=== PATIENT | female | born 1960 | race African-American/Black ===

== ENCOUNTER 2018-08-25 04:54 | Inpatient (IN) | payer MEDICAID ==
[~2018-08-25] VITALS: Ht 167.6 cm; Wt 102.0 kg
[2018-08-25] MEDS ORDERED: cloNIDine HCL 0.1 MG TAB PO ONE (05:15)
[2018-08-25 06:11] LABS: Basophils # (auto) 0.2 uL; Basophils % (auto) 1.1 % (0.0-2.0); Eosinophils # (auto) 0.2 uL; Eosinophils % (auto) 1.6 % (0.0-7.0); Hematocrit 40.7 % (36.0-46.0); Hemoglobin 13.8 g/dL (12.2-16.2); Lymphocytes # (auto) 1.5 uL; Lymphocytes % (auto) 10.7 % (10.0-50.0); Mean Corpuscular Hemoglobin 27.9 pg (28.0-32.0); Mean Corpuscular Volume 82.1 fL (80.0-100.0); Monocytes # (auto) 0.5 uL; Monocytes % (auto) 3.3 % (0.0-12.0); Neutrophils # (auto) 11.7 uL; Neutrophils % (auto) 83.3 % (37.0-80.0); Platelet Count (auto) 401 10^3/uL (140-450); Red Blood Cells 4.96 10^6/uL (4.0-5.20); Red Cell Distribution Width 14.2 % (11.8-14.3)
[2018-08-25 06:28] LABS: Alanine Aminotransferase 24 U/L (13-56); Albumin 3.8 g/dL (3.4-5.0); Anion Gap 8 (5-15); Aspartate Aminotransferase 17 U/L (15-37); BUN/Creatinine Ratio 13.7; Blood Urea Nitrogen 13 mg/dL (7-18); Calcium 8.7 mg/dL (8.5-10.1); Carbon Dioxide 27 mmol/L (21-32); Chloride 105 mmol/L (98-107); GFR African American 78 mL/min; GFR Non-African American 64 mL/min; Glucose 96 mg/dL (74-106); Magnesium 2.6 mg/dL (1.6-2.6); Potassium 3.8 mmol/L (3.5-5.1); Sodium 140 mmol/L (136-145)
[2018-08-25 06:33] LABS: Alkaline Phosphatase 129 U/L (45-117); Bilirubin, Total 0.2 mg/dL (0.2-1.0); Total Protein 8.3 g/dL (6.4-8.2)
[2018-08-25] MEDS ORDERED: SODIUM CHLORIDE 0.9% 1,000 ML IV ONE (07:25)
[2018-08-25 10:46] LABS: Urine Bacteria FEW /hpf (None Seen); Urine Blood Negative /uL (Negative); Urine Specific Gravity 1.005 (1.001-1.035); Urine WBC 1 /hpf (0 - 5)
[2018-08-25 10:58] LABS: Alcohol, Urine < 3.0 mg/dL (0-5); Amphetamine Screen, Urine NEGATIVE (NEGATIVE); Barbiturate Scree,Urine NEGATIVE (NEGATIVE); Benzodiazephine Screen, Urine NEGATIVE (NEGATIVE); Cannabinoid Screen, Urine NEGATIVE (NEGATIVE); Cocaine Screen, Urine NEGATIVE (NEGATIVE); Opiate Scree,Urine NEGATIVE (NEGATIVE); Phencyclidine Screen, Urine NEGATIVE (NEGATIVE)
[2018-08-25] MEDS ORDERED: hydrALAZINE HCL 20 MG/ML VL IV PRN (11:30)
[2018-08-25] MEDS ORDERED: HYDROcodone-ACET 5/325MG TAB PO PRN (11:30)
[2018-08-25] MEDS ORDERED: MORPHINE SULF INJ 2 MG/ML SYRINGE 1ML IV PRN ×3 (11:30→14:00)
[2018-08-25] MEDS ORDERED: ONDANSETRON HCL 4 MG/2 ML VIAL IV PRN (11:30)
[2018-08-25] MEDS ORDERED: NITROGLYCERIN 0.4 MG SL TAB SL PRN (11:30)
[2018-08-25 14:12] VITALS: BP 132/72
[2018-08-25] MEDS: SOD CHL 0.45% WITH 20MEQ KCL 1,000 ML IV SCH ×2 (14:57→23:45)
[2018-08-25] MEDS: LEVOFLOXACIN 750MG 150 ML IV SCH (14:59)
[2018-08-25 16:55] VITALS: BP 101/66
[2018-08-25] MEDS ORDERED: metroNIDAZOLE 500MG/100ML 100 ML IV SCH (18:00)
[2018-08-25] MEDS: metroNIDAZOLE 500MG/100ML 100 ML IV SCH ×2 (19:16→23:56)
--- NOTE | 2018-08-25 19:17 | NUR ---
ULTRASOUND CALL TO ULTRASOUND REGARDING PENDING ABDOMINAL ULTRASOUND, PER TECH THE PATIENT IS SCHEDULED FOR ULTRASOUND AROUND 2100, AND PATIENT IS TO REMAIN COMPLETELY NPO FOR TEST. WILL INFORM PATIENT OF APPROXIMATE TIME OF ULTRASOUND.
--- NOTE | 2018-08-25 19:20 | NUR ---
INFORMED PATIENT OF PENDING ULTRASOUND TO BE PERFORMED AROUND 9PM AND IMPORTANCE OF NPO STATUS, PATIENT VERBALIZED UNDERSTANDING. ALL QUESTIONS AND CONCERNS ADDRESSED. PATIENT CONTINUES TO INSIST SHE WANTS TO EAT OR DRINK AFTER ULTRASOUND TEST AND HAS QUESTIONS FOR THE DOCTOR. EDUCATED PATIENT ON NPO "NOTHING TO EAT OR DRINK STATUS" ORDERED BY DOCTOR. WILL AWAIT ULTRASOUND.
--- NOTE | 2018-08-25 20:15 | NUR ---
IV insertion IV access obtained, via clean sterile technique by inserting 20 gauge catheter at Right FA after 2 attempts. IV secured properly. No trauma to site. Patient tolerated procedure well.
--- NOTE | 2018-08-25 20:20 | NUR ---
IV removal IV DC'd Right AC with clean sterile technique, catheter fully intact. Pressure dressing applied to site. Patient tolerated well. NOTE: Patient unable to keep arm straight for IV antibiotic infusion, pump continues to alarm "High pressure". Iv site changed to Right FA.
--- NOTE | 2018-08-25 20:30 | NUR ---
PATIENT REFUSING PAIN MEDICATION PATIENT REPORTS ABDOMINAL PAIN AT A LEVEL OF 5/10. INFORMED PATIENT OF ALL NEEDED MEDICATIONS AVAILABLE FOR MILD/MODERATE/SEVERE PAIN. PATIENT REFUSES ALL PAIN MEDICATION.
--- NOTE | 2018-08-25 21:15 | NUR ---
MESSAGE LEFT TO DR. BOWEN AT ANSWERING SERVICE, CALL BACK INFORMATION PROVIDED. PATIENT IS REQUESTING TO EAT OR DRINK. PATIENT CURRENTLY WITH NPO ORDER.
[2018-08-25 21:30] VITALS: BP 136/64
[2018-08-25] MEDS ORDERED: DOCUSATE SOD 100 MG CAP PO SCH (22:00)
[2018-08-25] MEDS ORDERED: ATORVASTATIN 20 MG TAB PO SCH (22:00)
[2018-08-25] MEDS ORDERED: METOPROLOL TARTRATE 25 MG TAB PO SCH (22:00)
--- NOTE | 2018-08-25 22:00 | NUR ---
PATIENT RESTING IN BED TALKING ON TELEPHONE, NO S/S OF DISTRESS NOTED. IV FLUIDS INFUSING TO RIGHT FA, IV SITE IS BENIGN.
[2018-08-26 05:00] VITALS: BP 128/79
[2018-08-26] MEDS: metroNIDAZOLE 500MG/100ML 100 ML IV SCH ×4 (05:32→23:50)
[2018-08-26 06:35] LABS: Basophils # (auto) 0.1 uL; Basophils % (auto) 1.2 % (0.0-2.0); Eosinophils # (auto) 0.4 uL; Eosinophils % (auto) 4.5 % (0.0-7.0); Hematocrit 36.2 % (36.0-46.0); Hemoglobin 12.6 g/dL (12.2-16.2); Lymphocytes # (auto) 2.3 uL; Mean Corpuscular Hemoglobin 28.4 pg (28.0-32.0); Mean Corpuscular Hgb Conc. 34.7 g/dL (32.0-36.0); Mean Corpuscular Volume 81.9 fL (80.0-100.0); Monocytes # (auto) 0.5 uL; Monocytes % (auto) 5.1 % (0.0-12.0); Neutrophils # (auto) 5.8 uL; Neutrophils % (auto) 64.2 % (37.0-80.0); Nucleated Red Blood Cells % 0.2 %; Platelet Count (auto) 344 10^3/uL (140-450); Red Blood Cells 4.42 10^6/uL (4.0-5.20); Red Cell Distribution Width 14.3 % (11.8-14.3); White Blood Cell 9.1 10^3/uL (4.4-10.8)
[2018-08-26 06:37] LABS: Calcium 8.3 mg/dL (8.5-10.1)
[2018-08-26 06:40] LABS: BUN/Creatinine Ratio 14.7
[2018-08-26 08:04] VITALS: BP 130/75
[2018-08-26] MEDS ORDERED: ASPirin-EC 81 mg tab PO SCH (10:00)
[2018-08-26] MEDS ORDERED: LEVOFLOXACIN 750MG 150 ML IV SCH (10:00)
[2018-08-26] MEDS ORDERED: LISINOPRIL 10 MG TAB PO SCH (10:00)
[2018-08-26] MEDS: SOD CHL 0.45% WITH 20MEQ KCL 1,000 ML IV SCH ×2 (10:39→19:45)
[2018-08-26] MEDS: PANTOPRAZOLE 40 MG/10 ML VIAL IV SCH (10:39)
[2018-08-26 12:09] VITALS: BP 157/77
[2018-08-26] MEDS: LEVOFLOXACIN 750MG 150 ML IV SCH (15:43)
[2018-08-26 16:34] VITALS: BP 161/109
--- NOTE | 2018-08-26 20:20 | NUR ---
ROUNDS PATIENT IS AWAKE AND ALERT X4, SITTING UP IN BED TALKING ON TELEPHONE. PATIENT IS REQUESTING A SANDWICH AND JUICE. PATIENT INSTRUCTED ON NPO AFTER MIDNIGHT STATUS, PATIENT IS AWARE AND VERBALIZED UNDERSTANDING. PATIENT PROVIDED SANDWICH AND APPLE/CRANBERRY JUICE. IV TO LEFT FA IS BENIGN, RUNNING IV FLUIDS ORDERED. PATIENT DENIES PAIN AT THIS TIME. UPDATED ON PLAN OF CARE, PATIENT VERBALIZED UNDERSTANDING.
[2018-08-26 21:30] VITALS: BP 125/70
[2018-08-27 05:00] VITALS: BP 137/76
[2018-08-27] MEDS: SOD CHL 0.45% WITH 20MEQ KCL 1,000 ML IV SCH ×2 (05:45→10:20)
[2018-08-27] MEDS: metroNIDAZOLE 500MG/100ML 100 ML IV SCH ×4 (05:56→23:46)
[2018-08-27 09:00] VITALS: BP 137/70
[2018-08-27] MEDS: PANTOPRAZOLE 40 MG/10 ML VIAL IV SCH (09:56)
[2018-08-27 13:00] VITALS: BP 162/76
--- NOTE | 2018-08-27 15:19 | NUR ---
RE: MRI MRCP Patient unable to complete MRI at this time due to anxiety. Notified Dr. Duncan. Orders received and read back to verify.
[2018-08-27] MEDS ORDERED: LORazepam 2MG/ML-1ML VIAL IV ONE (15:30)
--- NOTE | 2018-08-27 15:43 | NUR ---
Morning note patient resting in bed with even and unlabored respirations, no distress noted. Instructed patient on POC, fall precautions and to call for assistance as needed. patient verbalized understanding. Fall precautions in place, call light within reach. Bed in low locked position with x2 side rails up. Will continue to monitor q1hr & PRN. Addendum: 08/27/18 at 1545 by Lily Roa RN Incorrect time. Intended for 0800.
[2018-08-27] MEDS: hydrALAZINE HCL 20 MG/ML VL IV PRN ×2 (16:17→23:46)
--- NOTE | 2018-08-27 16:25 | NUR ---
RE: MRI MRCP Patient is refusing MRI MRCP at this time. Patient states "I just can't do it. I will probably pass out. It's such a small space and then they want me to hold my breathe and stuff like that. I can't do it." Instructed patient on anti-anxiety medication per MD's orders. Patient refused. Patient stated "so then I'll just be drugged and in there. I don't want to take that medication." Notified Dr. Duncan. MD verbalized. Instructed to notify Dr. Jasmin Cartwright.
[2018-08-27 17:06] VITALS: BP 154/97
--- NOTE | 2018-08-27 17:08 | NUR ---
Notified MD Attempted to contact Dr. Jasmin Cartwright to notify MD that patient is refusing MRCP. No answer. Voicemail left.
--- NOTE | 2018-08-27 17:50 | NUR ---
was at bedside - Dr. Duncan Orders received and read back to verify.
--- NOTE | 2018-08-27 18:07 | NUR ---
Patient off unit to radiology via wheelchair. No distress noted.
--- NOTE | 2018-08-27 18:39 | NUR ---
End of shift patient resting in bed with even and unlabored respirations, no distress noted. Patient reports headache at this time. Patient refused pain medication. Instructed patient to notify staff if pain medication is requested. Patient verbalized understanding. Fall precautions in place with bed in low locked position, x2 side rails up, call light within reach. Patient has visitor at bedside.
[2018-08-27] MEDS: ACETAMINOPHEN 500 MG TAB PO PRN (20:33)
[2018-08-27 21:00] VITALS: BP 165/96
[2018-08-28] MEDS: SOD CHL 0.45% WITH 20MEQ KCL 1,000 ML IV SCH ×3 (04:13→21:45)
[2018-08-28 05:00] VITALS: BP 149/70
[2018-08-28] MEDS: metroNIDAZOLE 500MG/100ML 100 ML IV SCH ×3 (05:37→20:25)
--- NOTE | 2018-08-28 07:30 | NUR ---
Report received. Patient is alert and oriented. Patient has no complaints at this time. No S/S distress. Call light in reach. Will continue to monitor.
[2018-08-28 09:00] VITALS: BP 140/77
[2018-08-28] MEDS: PANTOPRAZOLE 40 MG/10 ML VIAL IV SCH (09:43)
[2018-08-28 13:00] VITALS: BP 157/95
--- NOTE | 2018-08-28 13:00 | NUR ---
Patient's IV site right forearm puffy, tender to touch. Patient states she wants to wait to see if Dr. Duncan is discharging her before attempting to restart IV. Will continue to monitor.
--- NOTE | 2018-08-28 15:45 | NUR ---
Dr. Duncan in to see patient as hospitalist. Waiting for Dr. Jasmin Cartwright to see patient today and decide if patient needs surgery.
[2018-08-28 17:34] VITALS: BP 156/92
--- NOTE | 2018-08-28 18:05 | NUR ---
IV removal IV right forearm DC'd with sterile technique, catheter fully intact. Pressure dressing applied to site. Patient tolerated procedure well. NOTE:
--- NOTE | 2018-08-28 18:06 | NUR ---
IV restart attempted X 1 without success. director of neurology, Jackelin, informed. She states NOC charge will try to restart IV after report.
--- NOTE | 2018-08-28 19:20 | NUR ---
Opening Shift Note Assumed care of patient, awake and alert. No S/S of distress/SOB or pain. Instructed on POC and to call for assistance PRN, will continue to monitor for changes Q1hr and PRN.
--- NOTE | 2018-08-28 19:30 | NUR ---
IV insertion IV access obtained, via clean sterile technique by inserting 22 gauge catheter into left forearm after 1 attempt. IV secured properly. No trauma to site. Patient tolerated well.
[2018-08-28 21:00] VITALS: BP 164/114
--- NOTE | 2018-08-28 22:35 | NUR ---
at bedside Dr. Cartwright at bedside. Requested labs to be drawn in the morning, he states depending on the results patient may need to repeat MRCP with sedation. Dr. Cartwright would like to be called when labs have resulted. Will let day shift RN know as well.
[2018-08-29] MEDS: hydrALAZINE HCL 20 MG/ML VL IV PRN ×2 (00:04→21:47)
[2018-08-29] MEDS: metroNIDAZOLE 500MG/100ML 100 ML IV SCH ×4 (00:11→17:37)
[2018-08-29 05:02] VITALS: BP 133/73
[2018-08-29 06:37] LABS: Basophils # (auto) 0.1 uL; Eosinophils # (auto) 0.4 uL; Eosinophils % (auto) 3.5 % (0.0-7.0); Hematocrit 38.2 % (36.0-46.0); Hemoglobin 13.3 g/dL (12.2-16.2); Lymphocytes # (auto) 1.9 uL; Lymphocytes % (auto) 17.2 % (10.0-50.0); Mean Corpuscular Hemoglobin 28.4 pg (28.0-32.0); Mean Corpuscular Hgb Conc. 34.9 g/dL (32.0-36.0); Mean Corpuscular Volume 81.4 fL (80.0-100.0); Monocytes # (auto) 0.6 uL; Monocytes % (auto) 5.8 % (0.0-12.0); Neutrophils % (auto) 72.5 % (37.0-80.0); Nucleated Red Blood Cells % 0.1 %; Platelet Count (auto) 392 10^3/uL (140-450); Red Blood Cells 4.69 10^6/uL (4.0-5.20); Red Cell Distribution Width 14.4 % (11.8-14.3); White Blood Cell 11.1 10^3/uL (4.4-10.8)
[2018-08-29 06:49] LABS: Magnesium 2.2 mg/dL (1.6-2.6); Potassium 3.9 mmol/L (3.5-5.1)
[2018-08-29 06:56] LABS: Albumin 3.5 g/dL (3.4-5.0); Bilirubin, Total 0.5 mg/dL (0.2-1.0); Calcium 8.9 mg/dL (8.5-10.1); Total Protein 7.3 g/dL (6.4-8.2)
--- NOTE | 2018-08-29 08:30 | NUR ---
Patient's IV left forearm puffy and tender. Will attempt IV restart.
[2018-08-29 09:00] VITALS: BP 134/79
--- NOTE | 2018-08-29 10:14 | NUR ---
Page placed to Dr. Jasmin Cartwright to update him on patient's labs.
--- NOTE | 2018-08-29 10:20 | NUR ---
Dr. Jasmin Cartwright informed of patient's labs. Patient to have surgery in AM. Page placed to PICC line RN to have a midline inserted.
[2018-08-29] MEDS ORDERED: ENOXAPARIN SOD 40 MG/0.4 ML SYRINGE SC ONE (11:45)
--- NOTE | 2018-08-29 11:45 | NUR ---
Dr. Duncan in to see patient as hospitalist.
--- NOTE | 2018-08-29 12:55 | NUR ---
No return call from PICC RN. Second page sent.
[2018-08-29 13:00] VITALS: BP 149/95
[2018-08-29 13:16] LABS: INR 0.95 (0.9-1.15); Prothrombin Time 10.2 sec (9.27-12.13)
--- NOTE | 2018-08-29 14:25 | NUR ---
NUTRITION ASSESSMENT NOTES Please refer to link notes of nutrition screen form filed under the intervention section of the plan of care for further details. Est. Needs: 1800 kcal to 2350 kcal (18-23 kcal/kgBW), 59 gms to 71 gms pro (1.0-1.2 gms/kgIBW : 59 kg). Will continue to monitor pertinent labs and reassess nutrient need prn Thank you. Addendum: 08/29/18 at [address] Amended: Links added.
--- NOTE | 2018-08-29 15:47 | NUR ---
Midline left upper arm inserted by PICC RN. IV left forearm removed with tip intact. Pressure dressing to site.
[2018-08-29] MEDS: PANTOPRAZOLE 40 MG/10 ML VIAL IV SCH (15:49)
[2018-08-29] MEDS: SOD CHL 0.45% WITH 20MEQ KCL 1,000 ML IV SCH ×2 (17:37→17:45)
[2018-08-29 17:38] VITALS: BP 151/76
--- NOTE | 2018-08-29 17:53 | NUR ---
Patient states that Dr. Jasmin Cartwright has not spoken to her re the surgery scheduled for Thursday.
--- NOTE | 2018-08-29 19:15 | NUR ---
Opening Shift Note Assumed care of patient, awake and alert with at bedside. No S/S of distress/SOB or pain. Instructed on POC and to call for assistance PRN, will continue to monitor for changes Q1hr and PRN.
[2018-08-29 21:00] VITALS: BP 178/90
--- NOTE | 2018-08-29 23:20 | NUR ---
Received call from [facility] Received call from [facility] stating patients HR had increased to over 100. Checked on patient and she was currently in the restroom. Waited for patient and she denied any chest pain and showed no signs or symptoms of distress. Checked patients HR and it was between 80-90. It decreased and was WNL. Will continue to monitor patient.
--- NOTE | 2018-08-30 | NUR ---
at bedside Dr. Cabello at bedside, explaining Lap/Choley to patient. Informed him of patients recent change in heart rhythm to ST, and ongoing high blood pressure. Dr. Cabello requests Cardio clearance before surgery. Also is discontinuing Flagyl because patient states that it makes her itch a little. Dr. Cabello also ordered one time dose of Benadryl and wants Hidascan done as well. Will input new orders per doctors request. Will continue to monitor patient.
[2018-08-30] MEDS ORDERED: diphenhdrAMINE HCL 50 MG/1 ML VL IV ONE (00:15)
--- NOTE | 2018-08-30 00:15 | NUR ---
Patient refusing Benadryl at this time Patient had informed Dr. Cartwright that she may have been having an allergic reaction to one of the antibiotics that she was receiving. Patient stated that she was itching, but it got better after her other antibiotic that was given to her during the day was discontinued. He ordered a one time dose of Benadryl, but patient declined at this time. Patient stated that she wants to see if itching will resolve on its own. Will continue to monitor patient.
[2018-08-30] MEDS: ACETAMINOPHEN 500 MG TAB PO PRN (00:58)
[2018-08-30] MEDS: SOD CHL 0.45% WITH 20MEQ KCL 1,000 ML IV SCH ×2 (03:45→14:00)
[2018-08-30 05:00] VITALS: BP 123/65
[2018-08-30 06:30] LABS: Basophils # (auto) 0.2 uL; Basophils % (auto) 1.5 % (0.0-2.0); Eosinophils # (auto) 0.4 uL; Eosinophils % (auto) 3.8 % (0.0-7.0); Hemoglobin 13.2 g/dL (12.2-16.2); Lymphocytes # (auto) 2.3 uL; Lymphocytes % (auto) 21.1 % (10.0-50.0); Mean Corpuscular Hemoglobin 27.6 pg (28.0-32.0); Mean Corpuscular Hgb Conc. 33.9 g/dL (32.0-36.0); Mean Corpuscular Volume 81.5 fL (80.0-100.0); Monocytes # (auto) 0.6 uL; Monocytes % (auto) 5.3 % (0.0-12.0); Neutrophils # (auto) 7.5 uL; Neutrophils % (auto) 68.3 % (37.0-80.0); Nucleated Red Blood Cells % 0.3 %; Platelet Count (auto) 402 10^3/uL (140-450); Red Blood Cells 4.78 10^6/uL (4.0-5.20); Red Cell Distribution Width 14.1 % (11.8-14.3)
[2018-08-30 06:44] LABS: Calcium 8.9 mg/dL (8.5-10.1); Magnesium 2.3 mg/dL (1.6-2.6); Potassium 3.9 mmol/L (3.5-5.1)
[2018-08-30 06:46] LABS: BUN/Creatinine Ratio 15.9
[2018-08-30 07:15] VITALS: BP 136/75
--- NOTE | 2018-08-30 07:33 | NUR ---
OPENING NOTE Assumed care of patient from NOC RNYvette. Patient awake and alert with no S/S of distress/SOB or pain. Instructed on POC and to call for assist PRN, verbalized understanding. Bed in lowest, locked position with side rails up x2. Will continue to monitor for changes Q1hr and PRN.
[2018-08-30] MEDS: PANTOPRAZOLE 40 MG/10 ML VIAL IV SCH (10:25)
[2018-08-30 11:27] VITALS: BP 152/76
--- NOTE | 2018-08-30 13:40 | NUR ---
CARDIOLOGY Per Dr. Hernandez, patient is cleared for Cholecystectomy.
--- NOTE | 2018-08-30 13:53 | NUR ---
PAGED Paged Dr. Cartwright regarding cardio clearance for surgery. Awaiting call back.
--- NOTE | 2018-08-30 19:30 | NUR ---
CLOSING NOTE Endorsed care of patient to NOC RNJanneth.
[2018-08-30 22:00] VITALS: BP 154/82
--- NOTE | 2018-08-30 22:00 | NUR ---
Called/paged called re:patient concern for the HIDA scan report and plan for surgery . Waiting for call back. Continue care.
--- NOTE | 2018-08-30 23:00 | NUR ---
at bedside. Dr Jasmin Cartwright at bedside .Discussed with patient re:HIDA Scan report and said its negative.Cleared patient for discharge. Dr Cartwright will call Hospitalist residential collections Dr Maday Ritchie to D/C patient home tonight.
--- NOTE | 2018-08-30 23:00 | NUR ---
[facility] patient. Per Dr Cartwright patient will follow up with her Primary Care Physician and no follow up needed at this time.
--- NOTE | 2018-08-30 23:30 | NUR ---
Patient in a hurry to go home. Dr Bethany Ritchie want to talk to the patient before D/C.
--- NOTE | 2018-08-31 | NUR ---
Dr Casper at the bedside. Discussed with patient re: mass seen in the patient's neck. Advised patient to follow up with Primary care physician for repeat CT of the neck and possible biopsy. Patient verbalized understanding.
[2018-08-31 00:20] VITALS: BP 154/82
[2018-08-31 00:32] VITALS: BP 178/90
--- NOTE | 2018-08-31 00:38 | NUR ---
Patient refused to signed the belonging list.
--- NOTE | 2018-08-31 00:40 | NUR ---
Discharge instructions given as ordered. Encourage to follow up with PMD as instructed. All questions and concerns addressed. Patient verbalized understanding. Midline in the L upper arm removed with catheter intact, pressure dressing applied. Telemetry unit returned to [facility]. Patient taken to vehicle via wheelchair with all personal belongings, accompanied by staff and family member. No distress noted at time of departure.
--- NOTE | 2018-08-31 09:59 | NUR ---
On-call 08/30-I did not receive a call regarding the social service consult for this patient-faxed out patient follow orders to [facility].
== END 2018-08-31 00:40 | disposition home or self-care (01) ==
LOC: ER 04:54 → TELE 11:47 → TELE-WESTW 14:08
PROVIDERS: ADMIT Nurse Practitioner Acute Care; ATTEND Internal Medicine
DX: K80.21 Calculus of gallbladder without cholecystitis with obstruction (principal); E66.01 Morbid (severe) obesity due to excess calories; K76.0 Fatty (change of) liver, not elsewhere classified; R59.9 Enlarged lymph nodes, unspecified; R07.9 Chest pain, unspecified; E07.9 Disorder of thyroid, unspecified; K82.8 Other specified diseases of gallbladder; I10 Essential (primary) hypertension; Z68.36 Body mass index [BMI] 36.0-36.9, adult
CPT/HCPCS: 36415; 70490; 71045; 71250; 74176; 76536; 76705; 78226; 80048; 80053; 80061; 80307; 81001; 82150; 83036; 83690; 83735; 84443; 84484; 85025; 85379; 85610; 86141; 93005; 93306; 96360; 96361; C9113; G0378; J1956; J2405; J3490